=== PATIENT | male | born 1965 | race Caucasian/White ===

== ENCOUNTER 2017-12-04 08:11 | Emergency (ER) | payer OTHER ==
[~2017-12-04] VITALS: Ht 182.9 cm; Wt 95.5 kg
[~2017-12-04 08:11] MED LIST: AMBIEN 5 MG TABL5 M1 PO; MEDROLDOSEPACK PO; MULTIVITAMINS1 EAC7 PO; NICOTINE TRANSD14 M1 TD; NORCO 5-325 TA1 EACH PO; VITAMINS
[2017-12-04 08:35] LABS: ABSOLUTE BASOPHILS 0.1 thou/uL (0.0-0.2); ABSOLUTE EOSINOPHILS 0.4 thou/uL (0.0-0.7); ABSOLUTE LYMPHOCYTES 2.5 thou/uL (0.8-5.3); ABSOLUTE MONOCYTES 0.8 thou/uL (0.0-1.2); ABSOLUTE NEUTROPHILS 3.7 thou/uL (1.6-8.1); BASOPHILS 0.9 %; EOSINOPHILS 5.9 %; HEMATOCRIT 45.5 % (42.0-52.0); HEMOGLOBIN 15.3 gm/dL (14.0-18.0); LYMPHOCYTES 32.6 %; MCH 29.2 pg (26.0-34.0); MCHC 33.6 g/dL (28.0-37.0); MCV 86.8 fL (80.0-100.0); MONOCYTES 11.2 %; MPV 9.4 fl. (7.2-11.1); NUCLEATED RBCS 0 /100WBC; PLATELET COUNT* 191 thou/uL (150-400); POLYS 49.4 %; RBC 5.25 mil/uL (4.50-6.00); RDW-CV 13.3 % (10.5-14.5); WBC 7.5 thou/uL (4.0-11.0)
[2017-12-04] MEDS ORDERED: NORVASC2.5 MG PO (08:35)
[2017-12-04] MEDS ORDERED: METOPROLOL SUCC50 MG PO (08:36)
[2017-12-04 08:41] LABS: ANION GAP 6 mmol/L (7-16); BUN 13 mg/dL (7-18); CALCIUM 8.5 mg/dL (8.5-10.1); CHLORIDE 105 mmol/L (98-107); CO2 28 mmol/L (21-32); CREATININE 0.8 mg/dL (0.6-1.3); GLUCOSE 107 mg/dL (70-99); POTASSIUM 3.9 mmol/L (3.5-5.1); SODIUM 139 mmol/L (136-145)
[2017-12-04 08:44] LABS: APTT 25.9 Seconds (25.0-31.3); INR 1.1; PROTIME 10.4 Seconds (9.20-11.50)
[2017-12-04 09:00] LABS: ALBUMIN 3.7 g/dL (3.4-5.0); ALKALINE PHOSPHATASE 92 U/L (46-116); CK-MB MASS 1.4 ng/mL (<0.5-3.6); LIPASE 192 U/L (73-393); MAGNESIUM 1.9 mg/dL (1.8-2.4); NT-PRO BRAIN NAT PEPTIDE 50 pg/mL (<300); SGOT 49 U/L (15-37); SGPT 80 U/L (30-65); TOTAL PROTEIN 6.9 g/dL (6.4-8.2); TROPONIN-I LEVEL <0.06 ng/mL (<0.06)
[2017-12-04 09:18] VITALS: BP 134/82
[2017-12-04 09:19] LABS: TOTAL BILIRUBIN 0.4 mg/dL (<0.1-1.0)
--- NOTE | 2017-12-04 16:21 | EKG ---
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
== END 2017-12-04 09:19 | disposition home or self-care (01) ==
LOC: M.ERS 08:11
PROVIDERS: Family Medicine
DX: R00.2 Palpitations (principal)

== ENCOUNTER → 2018-01-01 | Outpatient (CLI) | payer OTHER ==
[~2018-01-01] MED LIST changes: +METOPROLOL SUCC50 MG PO; +NORVASC2.5 MG PO
== END ==
LOC: M.MRI 06:42
DX: J34.1 Cyst and mucocele of nose and nasal sinus (principal); Z86.008 Personal history of in-situ neoplasm of other site; Z85.118 Personal history of other malignant neoplasm of bronchus and lung

== ENCOUNTER → 2019-10-14 | Outpatient (CLI) | payer OTHER | LOC: M.RAD 10-12 09:23 | DX: J98.4 Other disorders of lung (principal); Z85.118 Personal history of other malignant neoplasm of bronchus and lung ==

== ENCOUNTER 2019-12-14 10:56 | Emergency (ER) | payer OTHER ==
[~2019-12-14] VITALS: Ht 185.4 cm; Wt 93.4 kg
[2019-12-14] MEDS ORDERED: BRINTELLIX5 MG PO (11:03)
[2019-12-14] MEDS ORDERED: OMEPRAZOLE40 MG PO (11:03)
[2019-12-14 11:16] LABS: ABSOLUTE BASOPHILS 0.1 thou/uL (0.0-0.2); ABSOLUTE EOSINOPHILS 0.4 thou/uL (0.0-0.7); ABSOLUTE LYMPHOCYTES 2.8 thou/uL (0.8-5.3); ABSOLUTE MONOCYTES 0.9 thou/uL (0.0-1.2); ABSOLUTE NEUTROPHILS 5.7 thou/uL (1.6-8.1); BASOPHILS 0.6 %; EOSINOPHILS 4.2 %; HEMATOCRIT 45.4 % (42.0-52.0); HEMOGLOBIN 15.8 gm/dL (14.0-18.0); LYMPHOCYTES 28.7 %; MCH 30.2 pg (26.0-34.0); MCHC 34.8 g/dL (28.0-37.0); MCV 86.8 fL (80.0-100.0); MONOCYTES 9.4 %; MPV 9.4 fl. (7.2-11.1); NUCLEATED RBCS 0 /100WBC; PLATELET COUNT* 193 thou/uL (150-400); POLYS 57.1 %; RBC 5.23 mil/uL (4.50-6.00); RDW-CV 13.2 % (10.5-14.5); WBC 9.9 thou/uL (4.0-11.0)
[2019-12-14 11:21] LABS: CALCIUM 8.9 mg/dL (8.5-10.1); CREATININE 0.8 mg/dL (0.6-1.3); POTASSIUM 3.7 mmol/L (3.5-5.1)
[2019-12-14 11:23] LABS: APTT 25.5 Seconds (25.0-31.3)
[2019-12-14 11:34] LABS: ALBUMIN 3.9 g/dL (3.4-5.0); CK-MB MASS 1.2 ng/mL (<0.5-3.6); MAGNESIUM 2.2 mg/dL (1.8-2.4); TOTAL BILIRUBIN 0.3 mg/dL (<0.1-1.0); TOTAL PROTEIN 7.5 g/dL (6.4-8.2)
[2019-12-14 12:56] VITALS: BP 163/103
--- NOTE | 2019-12-14 16:08 | EKG ---
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: : 1965 Requested By: Harvey Goss Order Number: [id number] MD: Darwin Chapa Measurements Intervals [place] Rate: 63 P: 51 ND: 136 QRS: 66 QRSD: 82 T: 59 QT: 398 QTc: 408 Interpretive Statements Sinus rhythm Ventricular premature complex Compared to ECG 12/04/2017 08:19:00 Ventricular premature complex(es) now present Electronically Signed On 12-14-2019 16:07:55 CDT by Darwin Chapa [email or web address] <ELECTRONICALLY SIGNED> By: Darwin Chapa MD, [facility] 12/14/19 1607 1057 105 Darwin Chapa MD, [facility] /EPI
== END 2019-12-14 12:58 | disposition home or self-care (01) ==
LOC: M.ERS 10:56
PROVIDERS: Family Medicine
DX: R07.89 Other chest pain (principal); R53.1 Weakness

== ENCOUNTER 2021-02-23 10:43 | Emergency (ER) | payer OTHER ==
[~2021-02-23] VITALS: Ht 182.9 cm; Wt 92.1 kg
[~2021-02-23 10:43] MED LIST changes: +BRINTELLIX5 MG PO; +OMEPRAZOLE40 MG PO
[2021-02-23] MEDS ORDERED: EPCLUSA 400 MG1 EACH PO (10:52)
[2021-02-23 11:02] LABS: URINE BLOOD NEGATIVE (Negative); URINE CLARITY CLEAR; URINE COLOR YELLOW; URINE GLUCOSE-RANDOM NEGATIVE (Negative); URINE KETONES 1+ (Negative); URINE LEUKOCYTES-REFLEX NEGATIVE (Negative); URINE NITRITE-REFLEX NEGATIVE (Negative); URINE PROTEIN NEGATIVE (Negative); URINE SPECIFIC GRAVITY 1.025 (1.005-1.030)
[2021-02-23 11:05] LABS: ICTOTEST (BILI CONFIRMATORY) Negative (Negative); URINE BILIRUBIN 1+ (Negative)
[2021-02-23 11:24] LABS: HEMATOCRIT 42.7 % (42.0-52.0); HEMOGLOBIN 14.5 gm/dL (14.0-18.0); MCH 29.2 pg (26.0-34.0); MCV 85.9 fL (80.0-100.0); MPV 8.6 fl. (7.2-11.1); NUCLEATED RBCS 0 /100WBC; PLATELET COUNT* 193 thou/uL (150-400); RBC 4.97 mil/uL (4.50-6.00); RDW-CV 13.7 % (10.5-14.5); WBC 20.3 thou/uL (4.0-11.0)
[2021-02-23 11:32] LABS: CALCIUM 8.6 mg/dL (8.5-10.1); CREATININE 0.9 mg/dL (0.6-1.3); POTASSIUM 3.6 mmol/L (3.5-5.1)
[2021-02-23 11:37] LABS: ALBUMIN 3.3 g/dL (3.4-5.0); TOTAL BILIRUBIN 0.7 mg/dL (<0.1-1.0); TOTAL PROTEIN 7.1 g/dL (6.4-8.2)
[2021-02-23 11:45] LABS: ABSOLUTE LYMPHOCYTES 3.5 thou/uL (0.8-5.3); ABSOLUTE MONOCYTES 1.6 thou/uL (0.0-1.2); ABSOLUTE NEUTROPHILS 15.2 thou/uL (1.6-8.1); PLATELET ESTIMATE ADEQUATE
--- NOTE | 2021-02-23 11:53 | EKG ---
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
[2021-02-23] MEDS ORDERED: ZOFRAN ODT4 MG DISSOLVE (12:58)
[2021-02-23] MEDS ORDERED: HYDROCODON-ACE1 EAC7 PO (12:58)
[2021-02-23] MEDS ORDERED: CIPROFLOXACIN500 M1 PO (12:58)
[2021-02-23 13:08] VITALS: BP 150/81
== END 2021-02-23 13:08 | disposition home or self-care (01) ==
LOC: M.ERS 10:43
PROVIDERS: Family Medicine
DX: R10.84 Generalized abdominal pain (principal); Z79.899 Other long term (current) drug therapy

== ENCOUNTER → 2021-02-25 | Outpatient (CLI) | payer OTHER ==
[~2021-02-25] MED LIST changes: +CIPROFLOXACIN500 M1 PO; +EPCLUSA 400 MG1 EACH PO; +HYDROCODON-ACE1 EAC7 PO; +ZOFRAN ODT4 MG DISSOLVE
== END ==
LOC: M.RAD 09:53
PROVIDERS: ATTEND Family Medicine
DX: K59.00 Constipation, unspecified (principal); K85.90 Acute pancreatitis without necrosis or infection, unspecified; Z90.49 Acquired absence of other specified parts of digestive tract; R14.0 Abdominal distension (gaseous)

== ENCOUNTER → 2021-03-26 | Outpatient (CLI) | payer OTHER | LOC: M.LAB 16:08 | PROVIDERS: ATTEND Internal Medicine Gastroenterology | DX: Z01.812 Encounter for preprocedural laboratory examination (principal); Z20.822 Contact with and (suspected) exposure to COVID-19 ==